=== PATIENT | male | born 1965 | race Caucasian/White ===

== ENCOUNTER → 2021-10-06 | Outpatient (CLI) | payer MEDICARE ==
[~2021-10-06] MED LIST: ANASTROZOLE1 MG PO; CLARITIN10 MG PO; DOXYCYCLINE HY100 MG PO; DYMISTA NASAL S23 GM; LASIX20 MG PO; LOPRESSOR50 MG PO; MEDROL4 MG PO; MONODOX100 MG PO; NAPROSYN500 MG PO; NEURONTIN 300300 MG PO; NORCO 7.5-3251 EACH PO; PRILOSEC OTC20 MG PO; PRINIVIL20 MG PO; TESTOSTERON100 MG/ML IM; UROCIT-K10 MEQ PO; ZANAFLEX4 MG PO
[2021-10-06 14:13] LABS: HEMOGLOBIN 12.7 gm/dl (14.0-17.5); RED BLOOD COUNT 3.85 M/UL (4.20-5.50); WHITE BLOOD COUNT 7.8 K/UL (4.5-11.0)
[2021-10-06 15:12] LABS: BUN/CREATININE RATIO 9 (0-10)
== END ==
LOC: LAB 12:37
PROVIDERS: Nurse Practitioner Family
DX: M54.42 Lumbago with sciatica, left side (principal); M47.814 Spondylosis without myelopathy or radiculopathy, thoracic region; M47.816 Spondylosis without myelopathy or radiculopathy, lumbar region; W19.XXXA Unspecified fall, initial encounter
CPT/HCPCS: 36415; 71046; 72072; 72110; 80053; 84439; 84443; 85025

== ENCOUNTER → 2022-01-12 | Outpatient (CLI) | payer MEDICARE ==
[2022-01-14 04:08] LABS: TESTOSTERONE, SERUM 314 ng/dL (264-916)
== END ==
LOC: LAB 14:42
PROVIDERS: Nurse Practitioner
DX: Z13.9 Encounter for screening, unspecified (principal); R86.1 Abnormal level of hormones in specimens from male genital organs; I10 Essential (primary) hypertension; M54.50 Low back pain, unspecified; M47.816 Spondylosis without myelopathy or radiculopathy, lumbar region
CPT/HCPCS: 36415; 72110; 80061; 84402; 84403